=== PATIENT | male | born 1960 | race Caucasian/White ===

== ENCOUNTER 2018-10-20 06:41 | Inpatient (IN) | payer MEDICAID ==
[~2018-10-20] VITALS: Ht 170.2 cm; Wt 61.3 kg
[2018-10-20] VITALS (22 sets, daily range): BP systolic 110–145; BP diastolic 44–96; PULSE 61–91; RESP 14–21; Ht 170.2 cm; Wt 61.3 kg
[2018-10-20] MEDS ORDERED: SOD CHLORIDE 0.9% 1,000 ML IV STA ×2 (06:55→07:55)
[2018-10-20] MEDS ORDERED: ETOMIDATE 20 MG INJ IV ONE (07:00)
[2018-10-20] MEDS ORDERED: SUCCINYLCHOLINE CHLORIDE 100 MG/5 ML SYG IV ONE ×2 (07:00→21:00)
[2018-10-20] MEDS ORDERED: PROPOFOL 100 ML IV STA (07:11)
--- NOTE | 2018-10-20 07:11 | ERD ---
ER Documentation Chief Complaint Chief Complaint BIB RA39, AMS XTODAY, SUSPECTED OD HPI This is a 39-year-old male with an unknown past medical history that is brought into the emergency department by EMS from a bath house. When they arrived the patient was somnolent, and limited history was available. EMS did indicate that the patient stated he had taken GHB. However the patient was buried arousable and difficult to arouse. The patient had pinpoint pupils and they gave Narcan with no response. There is no signs of trauma. There is no signs of drug paraphernalia according to EMS. ROS All systems reviewed and are negative except as per history of present illness. Medications Home Meds Unable to Obtain Active Prescriptions or Reported Meds Allergies Allergies: Coded Allergies: Unknown: Unable to obtain (Unverified , 10/20/18) ADMITTED JENNIFER- UNABLE TO OBTAIN INFO AT THIS TIME (10/20 @ 08AM)-PLEASE UPDATE WHEN PT ABLE TO PROVIDE INFO PMhx/Soc Medical and Surgical Hx: Unable to obtain Smoking Status: Unknown if ever smoked Physical Exam Vitals Vital Signs Date Temp Pulse Resp B/P (MAP) Pulse Ox O2 O2 Flow FiO2 Time Delivery Rate 10/20/18 98.0 61 16 139/71 100 Mechanical 10:15 (93) Ventilator 10/20/18 66 18 126/83 100 Mechanical 09:45 (97) Ventilator 10/20/18 64 16 128/78 100 Mechanical 09:41 (95) Ventilator 10/20/18 74 16 133/97 100 Mechanical 09:15 (109) Ventilator 10/20/18 72 16 117/78 100 Mechanical 09:00 (91) Ventilator 10/20/18 72 16 113/77 100 Mechanical 08:45 (89) Ventilator 10/20/18 74 16 111/45 100 Mechanical 08:30 (67) Ventilator 10/20/18 78 18 113/62 100 Mechanical 08:15 (79) Ventilator 10/20/18 75 22 102/49 100 Mechanical 08:00 (66) Ventilator 10/20/18 82 24 107/33 100 Mechanical 07:40 (57) Ventilator 10/20/18 89 24 122/50 95 Mechanical 07:20 (74) Ventilator 10/20/18 58 20 100 60 07:00 10/20/18 97.9 56 14 124/83 95 06:52 (97) 5/16/19 69 24 159/83 99 Mechanical 06:49 (108) Ventilator Physical Exam Constitutional:Well-developed. Well-nourished. HEENT:Normocephalic. Atraumatic.Pupils were 2 mm equal round reactive to light. Dry mucous membranes.No tonsillar exudates. Neck: No nuchal rigidity. No lymphadenopathy. No posterior cervical spine tenderness or step-offs. Respiratory: Not using accessory muscles of respiration. Agonal respirations with decreased breath sounds bilaterally. Cardiovascular: Regular rate regular rhythm.No murmurs. No rubs were appreciated.S1, S2 normal. Distal pulses are palpable 2+ bilaterally. GI: Abdomen was soft. Nontender. Non Distended. No pulsatile abdominal masses or bruits. No rebound. No guarding. Bowel sounds were present and normal. Muscle skeletal: Full range of motion of both the upper and lower extremities bilaterally.Normal muscle tone.No assymetrical calf tenderness or swelling. Skin: Diaphoretic. No petechia, no purpura. No lesions on the palms or the soles of the feet. No maculopapular rash. NEURO: Patient did not open eyes in response to pain, did not withdraw to pain, a phasic with a GCS of 3. Result Diagram: 10/20/18 0707 10/20/18 0707 Results 24 hrs Laboratory Tests Test 10/20/18 07:07 10/20/18 09:54 White Blood Count 7.3 10^3/ul Red Blood Count 5.10 10^6/ul Hemoglobin 14.4 g/dl Hematocrit 44.3 % Mean Corpuscular Volume 86.9 fl Mean Corpuscular Hemoglobin 28.2 pg Mean Corpuscular Hemoglobin Concent 32.5 g/dl Red Cell Distribution Width 13.4 % Platelet Count 255 10^3/UL Mean Platelet Volume 10.5 fl Immature Granulocytes % 0.300 % Neutrophils % 52.5 % Lymphocytes % 37.2 % Monocytes % 8.1 % Eosinophils % 1.2 % Basophils % 0.7 % Nucleated Red Blood Cells % 0.0 /100WBC Immature Granulocytes # 0.020 10^3/ul Neutrophils # 3.9 10^3/ul Lymphocytes # 2.7 10^3/ul Monocytes # 0.6 10^3/ul Eosinophils # 0.1 10^3/ul Basophils # 0.1 10^3/ul Nucleated Red Blood Cells # 0.0 10^3/ul Prothrombin Time 12.5 Sec Prothrombin Time Ratio 1.0 INR International Normalized Ratio 0.92 Activated Partial Thromboplast Time 30.9 Sec Urine Color YELLOW Urine Clarity CLEAR Urine pH 5.0 Urine Specific [place] 1.015 Urine Ketones NEGATIVE mg/dL Urine Nitrite NEGATIVE mg/dL Urine Bilirubin NEGATIVE mg/dL Urine Urobilinogen NEGATIVE mg/dL Urine Leukocyte Esterase NEGATIVE [place]/ul Urine Hemoglobin NEGATIVE mg/dL Urine Glucose NEGATIVE mg/dL Urine Total Protein NEGATIVE mg/dl Sodium Level 145 mmol/L Potassium Level 4.1 mmol/L Chloride Level 110 mmol/L Carbon Dioxide Level 26 mmol/L Anion Gap 9 Blood Urea Nitrogen 22 mg/dl Creatinine 0.98 mg/dl Est Glomerular Filtrat Rate mL/min > 60 mL/min Glucose Level 125 mg/dl Calcium Level 9.3 mg/dl Total Bilirubin 0.5 mg/dl Direct Bilirubin 0.00 mg/dl Indirect Bilirubin 0.5 mg/dl Aspartate Amino Transf (AST/SGOT) 23 IU/L Alanine Aminotransferase (ALT/SGPT) 22 IU/L Alkaline Phosphatase 67 IU/L Creatine Kinase 65 IU/L Creatine Kinase Index 2.3 Creatinine Kinase MB (Mass) 1.51 ng/ml Troponin I < 0.012 ng/ml Total Protein 7.7 g/dl Albumin 4.2 g/dl Globulin 3.50 g/dl Albumin/Globulin Ratio 1.20 Salicylates Level < 1.0 mg/dl Urine Opiates Screen Negative Acetaminophen Level < 10.0 ug/ml Urine Barbiturates Negative Urine Amphetamines Screen POSITIVE Urine Benzodiazepines Screen Negative Urine Cocaine Screen Negative Urine Cannabinoids Negative Ethyl Alcohol Level < 10.0 mg/dl Blood Gas Specimen Source Blood arterial Arterial Blood Date Drawn 10/20/2018 10:05:31 AM Arterial Blood pH (Temp corrected) 7.348 Arterial Blood pCO2 (Temp correct) 44.1 mmhg Arterial Blood pO2 (Temp corrected) 247.5 mmHG Arterial Blood HCO3 23.7 mmol/L Arterial Blood Base Excess -2.0 mmol/L Arterial Blood Oxygen Saturation 99.0 mmHG Reynaldo Test N/A Arterial Blood Gas Puncture Site LB Arterial Blood Carboxyhemoglobin 0.2 % Arterial Blood Methemoglobin 0.3 % Blood Gas A-a O2 Differential 276.6 mmHg Oxyhemoglobin Percent 98.5 % Blood Gas Temperature 37.0 C Blood Gas Respiration Rate 18.0 Blood Gas Actual Respiration Rate 18 Blood Gas Modality VENT - AC FiO2 80.0 % Blood Gas Tidal Volume 500.0 mL Blood Gas Notified Whom TM Blood Gas Notified Time 10/20/2018 10:23:46 AM Current Medications Medications Dose Sig/Norma Start Time Status Last (Trade) Ordered Route PRN Stop Time Admin Dose Reason Admin Sodium 1,000 ml @ Q1H STAT 10/20/18 DC 10/20/18 Chloride 1,000 mls/hr IV 06:55 07:06 10/20/18 07:54 Etomidate 10 mg ONCE ONCE 10/20/18 DC 10/20/18 (Amidate) IV 07:00 07:07 10/20/18 07:02 100 mg ONCE ONCE 10/20/18 DC 10/20/18 Succinylcholi IV 07:00 07:08 ne Chloride 10/20/18 07:02 (Anectine Syringe) Propofol 100 ml @ ONCE STAT 10/20/18 10/20/18 1.95 mls/hr IV 07:11 07:36 10/22/18 10:27 Propofol 0 ml @ ud STK-MED 10/20/18 DC ONCE .ROUTE 07:13 10/20/18 07:14 Midazolam 4 mg ONCE STAT 10/20/18 DC 10/20/18 HCl IM 07:20 08:04 (Versed) 10/20/18 07:58 Propofol 100 mg ONCE ONCE 10/20/18 DC 10/20/18 (Diprivan) IV 08:00 08:05 10/20/18 08:01 Midazolam 10 mg ONCE ONCE 10/20/18 DC 10/20/18 HCl IV 08:00 08:07 (Versed) 10/20/18 08:01 Sodium 1,000 ml @ Q1H STAT 10/20/18 DC 10/20/18 Chloride 1,000 mls/hr IV 07:55 08:04 10/20/18 08:54 Propofol 60 mg ONCE ONCE 10/20/18 DC (Diprivan) IV 08:30 10/20/18 08:31 Lorazepam 2 mg ONCE ONCE 10/20/18 DC 10/20/18 (Ativan) IV 09:00 08:41 10/20/18 09:01 Midazolam 50 ml @ 3 ONCE STAT 10/20/18 10/20/18 HCl mls/hr IV 08:54 09:24 10/21/18 01:33 Procedures/MDM The patient presented to the emergency department with an acute and persistent change in their mental status. The differential diagnosis is diverse however reversible causes such as hypoglycemia, opiate overdose, thiamine deficiency were immediately considered. The patient was placed on a secured entrance monitor, continuous pulse oximetry and IV access was established. The patients airway was secure however hypoxic events such as anemia, shock, or severe pulmonary disease were all considered as etiologies in this patients presentation. Circulation assessed with good cap refill and did not require fluids or pressure support. Finger stick for rapid glucose determined to be normal. The patient had a GCS of 3. This was thought to be secondary to GHB. The patient was unable to maintain his airway. Therefore at this time the patient underwent rapid sequence intubation given 10 mg of etomidate followed by 100 mg of succinylcholine and intubated with a 7.50 endotracheal tube. This tube was seen going through the cords by myself and good capnometry change x6, equal and symmetrical breath sounds now heard bilaterally, with condensation seen within the tube to indicate good tube position. The tube was secured to the lip line of 24 cm. Chest radiograph reviewed by myself the radiologist indicated that the endotracheal tube is in good position. There is no infiltrates to suggest aspiration pneumonia. A Anders catheter was placed to measure urinary output and also to obtain a urine drug screen. The patient was positive for amphetamines. The patient was placed on a Versed drip. He also had received propofol as he did become agitated with attempting to remove the tube. However the patient was not following verbal command and I did not feel was safe to extubate at this time given that he likely had a combination of coingestion with GHB and amphetamines affecting his respiratory drive. He will be admitted to the intensive care unit in serious condition. 12 Lead EKG tracing ordered and reviewed by myself showed: Sinus bradycardia 56 bpm and no arrhythmia. PVCs GA interval normal. QRS duration normal. No ST segment elevation No ST segment depression. No changes consistent with acute ischemia. Critical Care: Time: 110 minutes Treatments/Evaluations: Close monitoring and treatment of unstable vital signs, cardiorespiratory, and neurologic status, while maintaining tight balance of fluid, respiratory, and cardiac interventions. Time does not include performing any of the above billable procedures. Departure Diagnosis: Primary Impression: Gamma-hydroxybutyrate (GHB) use disorder, severe Additional Impression: Respiratory distress Condition: Serious TERA HERNANDEZ MD October 20, 2018 07:11
[2018-10-20] MEDS ORDERED: PROPOFOL 0 ML ONE (07:13)
[2018-10-20] MEDS ORDERED: MIDAZOLAM 1 MG/ML 2 ML INJ IM STA (07:20)
[2018-10-20] MEDS ORDERED: PROPOFOL 200 MG INJ IV ONE ×2 (08:00→08:30)
[2018-10-20] MEDS ORDERED: MIDAZOLAM 1 MG/ML 2 ML INJ IV ONE (08:00)
[2018-10-20] MEDS ORDERED: MIDAZOLAM (DRIP) 50 mg/50 mL 50 ML IV STA (08:54)
[2018-10-20] MEDS ORDERED: LORAZEPAM 2 MG INJ IV ONE (09:00)
[2018-10-20] MEDS ORDERED: FENTAnyl (DRIP) 1000 mcg/100mL 100 ML IV SCH (12:30)
--- NOTE | 2018-10-20 14:29 | CONS ---
DATE OF ADMISSION: 10/20/2018 DATE OF CONSULTATION: 10/20/2018 REASON FOR CONSULT: Respiratory failure. Thank you, Dr. Sams, for this consultation. HISTORY OF PRESENT ILLNESS: This is a 39-year-old gentleman who was found down in a [facility] ent, brought to the Emergency Room for further evaluation. Here he had history of taking GHB. Unfor tunately, secondary to altered mental status patient was emergently intubated for airway protection. Currently, he remains agitated, moving all 4 limbs, but not following commands on mechanical ventila tion. PAST MEDICAL HISTORY: Unknown. MEDICATIONS PRIOR TO ADMISSION: Unknown. PHYSICAL EXAMINATION: GENERAL: Well-nourished, well-developed gentleman on mechanical ventilation, appears comfortable oth er than mild agitation. VITAL SIGNS: Temperature 98, pulse 76, blood pressure 126/80, O2 saturation 96%, FIO2 of 30%, orally intubated. NECK: Supple. No JVD or lymphadenopathy. CARDIAC: S1, S2, no added sounds or murmurs. CHEST: Diminished air entry bilaterally. ABDOMEN: Soft, nontender. No guarding or rebound. EXTREMITIES: No cyanosis, clubbing, edema. NEUROLOGIC: Grossly intact. No focal deficits. LABORATORY DATA: White count 7.3, hemoglobin 14.4, platelets of 255. BUN 22, creatinine 0.98. ABG: pH 7.34, pCO2 of 44, pO2 of 247. Urinalysis negative for infection, but positive for amphetamines. IMPRESSION AND PLAN: 1. Likely overdose of amphetamines, GHB, resulting in altered mental status requiring emergent intub ation for airway protection. Otherwise, incomplete data. We will continue with mechanical ventilati on. Continue with sedation and pain control. Anticipate extubation in the next 24 hours once agitat ion under control. 2. Obtain further history also. Dictated By: LYNDSEY BARRIOS MD SV/NTS Conf#: [id number] DID#: [id number] CC: MICHAEL SAMS MD;*EndCC*
[2018-10-20] MEDS: DOCUSATE SODIUM 100 MG CAP PO SCH (14:53)
[2018-10-20] MEDS ORDERED: ONDANSETRON 4 MG INJ IV PRN (15:00)
[2018-10-20] MEDS ORDERED: ACETAMINOPHEN 650MG/20.3ML CUP PO PRN (15:00)
[2018-10-20] MEDS ORDERED: LORAZEPAM 2 MG INJ IV PRN (15:00)
[2018-10-20] MEDS: DEXTROSE 5%-0.45% NACL 1,000 ML IV SCH ×2 (15:29→22:45)
[2018-10-20] MEDS: MIDAZOLAM (DRIP) 50 mg/50 mL 50 ML IV SCH ×2 (15:39→22:46)
[2018-10-20] MEDS ORDERED: ETOMIDATE 20 MG INJ ONE (21:00)
[2018-10-20] MEDS ORDERED: MIDAZOLAM 1 MG/ML 2 ML INJ ONE (21:00)
[2018-10-20] MEDS ORDERED: PROPOFOL 200 MG INJ ONE (21:00)
[2018-10-20] MEDS: FAMOTIDINE 20 MG INJ IV SCH (21:13)
--- NOTE | 2018-10-20 22:03 | HP ---
Date/Time of Note Date/Time of Note DATE: 10/20/18 Assessment/Plan VTE Prophylaxis SCD applied (from Nsg): Yes Pharmacological prophylaxis: NA/contraindicated Pharm contraindication: low risk/ambulating Lines/Catheters IV Catheter Type (from Nrsg): Peripheral IV Urinary Cath still in place: Yes Reason Cath still needed: other (indicate) Assessment/Plan Hospital Course 58-year-old male brought in from bath house with altered mentation managed as f ollows: 1. Acute toxic metabolic encephalopathy likely secondary to substance use 2. Accidental overdose 3. Acute respiratory failure secondary to the above 4. High risk for aspiration pneumonia/pneumonitis 5. Incomplete history 6. Highly probable multi-substance abuse Plan: -Continue ICU care, vent monitoring and sedation at this time -IV hydration -Consider CT scan of the brain -Neurology consultation -Pulmonary consultation -flour worker consult to reach family and positively identifying the patient -Further interventions per clinical course -Rule out acute coronary syndrome -Prophylaxis, SCDs for now, H2 blockers Result Diagram: 10/20/18 0707 10/20/18 0707 Results 24hrs Laboratory Tests Test 10/20/18 07:07 10/20/18 09:54 White Blood Count 7.3 Red Blood Count 5.10 Hemoglobin 14.4 Hematocrit 44.3 Mean Corpuscular Volume 86.9 Mean Corpuscular Hemoglobin 28.2 L Mean Corpuscular Hemoglobin Concent 32.5 Red Cell Distribution Width 13.4 Platelet Count 255 Mean Platelet Volume 10.5 H Immature Granulocytes % 0.300 Neutrophils % 52.5 Lymphocytes % 37.2 Monocytes % 8.1 Eosinophils % 1.2 Basophils % 0.7 Nucleated Red Blood Cells % 0.0 Immature Granulocytes # 0.020 Neutrophils # 3.9 Lymphocytes # 2.7 Monocytes # 0.6 Eosinophils # 0.1 Basophils # 0.1 Nucleated Red Blood Cells # 0.0 Prothrombin Time 12.5 Prothrombin Time Ratio 1.0 INR International Normalized Ratio 0.92 Activated Partial Thromboplast Time 30.9 Urine Color YELLOW Urine Clarity CLEAR Urine pH 5.0 Urine Specific [place] 1.015 Urine Ketones NEGATIVE Urine Nitrite NEGATIVE Urine Bilirubin NEGATIVE Urine Urobilinogen NEGATIVE Urine Leukocyte Esterase NEGATIVE Urine Hemoglobin NEGATIVE Urine Glucose NEGATIVE Urine Total Protein NEGATIVE Sodium Level 145 H Potassium Level 4.1 Chloride Level 110 Carbon Dioxide Level 26 Anion Gap 9 Blood Urea Nitrogen 22 H Creatinine 0.98 Est Glomerular Filtrat Rate mL/min > 60 Glucose Level 125 Hemoglobin A1c 5.5 Calcium Level 9.3 Total Bilirubin 0.5 Direct Bilirubin 0.00 Indirect Bilirubin 0.5 Aspartate Amino Transf (AST/SGOT) 23 Alanine Aminotransferase (ALT/SGPT) 22 Alkaline Phosphatase 67 Creatine Kinase 65 Creatine Kinase Index 2.3 Creatinine Kinase MB (Mass) 1.51 Troponin I < 0.012 Total Protein 7.7 Albumin 4.2 Globulin 3.50 H Albumin/Globulin Ratio 1.20 Salicylates Level < 1.0 L Urine Opiates Screen Negative Acetaminophen Level < 10.0 L Urine Barbiturates Negative Urine Amphetamines Screen POSITIVE Urine Benzodiazepines Screen Negative Urine Cocaine Screen Negative Urine Cannabinoids Negative Ethyl Alcohol Level < 10.0 H Blood Gas Specimen Source Blood arterial Arterial Blood Date Drawn 10/20/2018 10:05:31 AM Arterial Blood pH (Temp corrected) 7.348 L Arterial Blood pCO2 (Temp correct) 44.1 Arterial Blood pO2 (Temp corrected) 247.5 H Arterial Blood HCO3 23.7 Arterial Blood Base Excess -2.0 Arterial Blood Oxygen Saturation 99.0 H Reynaldo Test N/A Arterial Blood Gas Puncture Site LB Arterial Blood Carboxyhemoglobin 0.2 Arterial Blood Methemoglobin 0.3 Blood Gas A-a O2 Differential 276.6 H Oxyhemoglobin Percent 98.5 Blood Gas Temperature 37.0 Blood Gas Respiration Rate 18.0 Blood Gas Actual Respiration Rate 18 Blood Gas Modality VENT - AC FiO2 80.0 Blood Gas Tidal Volume 500.0 Blood Gas Notified Whom TM Blood Gas Notified Time 10/20/2018 10:23:46 AM HPI/ROS Admit Date/Time Admit Date/Time October 20, 2018 at 09:27 Hx of Present Illness 39-year-old male that was brought in by EMS due to altered mentation. Supposedly this patient was at the bath house and was noted to be unresponsive. When EMS got there, I was told that the patient was arousable to deep sternal rub I was able to tell them that he had taken some illicit substance, but patient's mentation slowly worsening. On arrival to the emergency room he had to be endotracheally intubated to protect his airway. He is currently being admitted to the intensive care unit and is on ventilator support. No further history is obtainable. However when he arrived to the intensive care unit, he was found to have multiple different substances that is thought to include crystal meth as well as some other drug paraphernalia that has been sent to the security office. No further medical history is obtainable at this time ROS Subjective hx not possible: pt critical status PMH/Family/Social Past Medical History Unknown Medications Current Medications Propofol 100 ml @ 1.95 mls/hr ONCE STAT IV Last administered on 10/20/18at 07:36; Admin Dose 1.95 MLS/HR; Start 10/20/18 at 07:11; Stop 10/22/18 at 10:27 Dexmedetomidine HCl 200 mcg/ Sodium Chloride 50 ml @ 0 mls/hr TITRATE IV ; Start 10/20/18 at 12:30 Fentanyl 100 ml @ 2.5 mls/hr TITRATE IV ; Start 10/20/18 at 12:30 Midazolam HCl 50 ml @ 1 mls/hr TITRATE IV Last administered on 10/20/18at 15:39; Admin Dose 8 MLS/HR; Start 10/20/18 at 14:40 Dextrose/Sodium Chloride 1,000 ml @ 125 mls/hr Q8H IV Last administered on 10/20/18at 15:29; Admin Dose 125 MLS/HR; Start 10/20/18 at 14:41 Ondansetron HCl (Zofran Inj) 4 mg Q6H PRN IV NAUSEA AND/OR VOMITING; Start 10/20/18 at 15:00 Acetaminophen (Tylenol Liquid) 650 mg Q6H PRN PO PAIN LEVEL 1-3 OR FEVER; Start 10/20/18 at 15:00 Lorazepam (Ativan) 1 mg Q2H PRN IV ANXIETY; Start 10/20/18 at 15:00 Docusate Sodium (Colace) 100 mg Q12H PO ; Start 10/20/18 at 15:00 Famotidine (Pepcid Iv) 20 mg Q12 IV Last administered on 10/20/18at 21:13; Admin Dose 20 MG; Start 10/20/18 at 21:00 Coded Allergies: Unknown: Unable to obtain (Unverified , 10/20/18) ADMITTED JENNIFER- UNABLE TO OBTAIN INFO AT THIS TIME (10/20 @ 08AM)-PLEASE UPDATE WHEN PT ABLE TO PROVIDE INFO Past Surgical History Unknown Family History Significant Family History: other (Unknown) Social History Smoking Status: Unknown if ever smoked Drug Use: other Exam/Review of Systems Vital Signs Vitals Vital Signs Date Temp Pulse Resp B/P (MAP) Pulse Ox O2 O2 Flow FiO2 Time Delivery Rate 10/20/18 72 18 117/72 99 Mechanical 21:00 (87) Ventilator 10/20/18 99.1 20:00 10/20/18 40 17:40 Exam Exam GENERAL: Intubated and comfortably sedated HEENT: DIANA, Intubated, Vent settings noted , LUNGS: diffusely diminished and clear BS HEART: S1, S2. No murmur, gallops or rubs. ABDOMEN: Soft, non distended, Normoactive bowel sounds. GENITOURINARY: Normal male external genitalia, Anders to bedside drainage EXTREMITIES: Patient is currently requiring bilateral upper extremity soft restraints. No lower extremity edema noted. Patient noted to move all 4 extremities NEUROLOGIC: The patient is currently sedated. SKIN: Otherwise, unremarkable. Additional Comments PROCEDURE: XR Chest. CLINICAL INDICATION: Altered Mental Status TECHNIQUE: PA and Lateral views of the chest were obtained. COMPARISON: None. FINDINGS: Endotracheal tube in place with tip proximal bailey. Hypoventilatory chest. Cardiomediastinal silhouette is normal. Pulmonary vasculature is normal. Lungs costophrenic angles are clear. Mild dextrorotoscoliosis thoracic spine. IMPRESSION: No evidence of acute cardiopulmonary disease. RPTAT:AAJJ Physician Gianni Time Electronically viewed and signed by Physician Gianni on 10/20/2018 07:42 BM/ CC: TERA HERNANDEZ MD [id number] I reviewed EKG Rate: 56 Rhythm: sinus Note: No ST elevation or depressions noted concerning for acute ischemic event. MICHAEL SAMS October 20, 2018 21:57
[2018-10-21] VITALS (42 sets, daily range): BP systolic 79–139; BP diastolic 57–83; PULSE 50–96; RESP 15–21
[2018-10-21] MEDS: DOCUSATE SODIUM 100 MG CAP PO SCH ×2 (02:44→15:00)
[2018-10-21] MEDS: DEXTROSE 5%-0.45% NACL 1,000 ML IV SCH ×4 (05:23→23:59)
[2018-10-21] MEDS: MIDAZOLAM (DRIP) 50 mg/50 mL 50 ML IV SCH (05:23)
[2018-10-21] MEDS: DEXMEDETOMIDINE HCL 200 MCG in SOD CHLORIDE 0.9% 48 ML IV SCH ×3 (08:17→18:33)
[2018-10-21] MEDS: FAMOTIDINE 20 MG INJ IV SCH ×2 (09:00→20:38)
--- NOTE | 2018-10-21 09:53 | PN ---
Date/Time of Note Date/Time of Note DATE: 10/21/18 TIME: 09:48 Assessment/Plan VTE Prophylaxis Risk score (from Ns)>0 risk: 2 SCD applied (from Ns): Yes Pharmacological prophylaxis: other Lines/Catheters IV Catheter Type (from [facility]): Peripheral IV Urinary Cath still in place: Yes Assessment/Plan Hospital Course 58-year-old male brought in from [facility] with altered mentation managed as follows: 1. Acute toxic metabolic encephalopathy likely secondary to substance use -Urine toxicology positive for amphetamines -Brain CT reviewed, no acute findings 2. Accidental overdose 3. Acute respiratory failure secondary to the above -Patient remains ventilator dependent 4. High risk for aspiration pneumonia/pneumonitis 5. Incomplete history 6. Highly probable multi-substance abuse Plan: -Continue ICU care, vent monitoring and sedation at this time -Critical care timevent management and weaning per pulmonary, appreciate input -IV hydration -Prophylaxis, SCDs for now, H2 blockers Approximately 30 minutes. Result Diagram: 10/21/18 0427 10/21/18 0428 Results 24hrs Laboratory Tests Test 10/20/18 09:54 10/20/18 22:25 10/21/18 04:27 10/21/18 04:28 Blood Gas Blood arterial Specimen Source Arterial Blood 10/20/2018 10:05: Date Drawn 31 AM Arterial Blood pH 7.348 L (Temp corrected) Arterial Blood 44.1 pCO2 (Temp correct) Arterial Blood 247.5 H pO2 (Temp corrected) Arterial Blood 23.7 HCO3 Arterial Blood -2.0 Base Excess Arterial Blood 99.0 H Oxygen Saturation Reynaldo Test N/A Arterial Blood LB Gas Puncture Site Arterial 0.2 Blood Carboxyhemo globin Arterial Blood 0.3 Methemoglobin Blood Gas A-a O2 276.6 H Differential Oxyhemoglobin 98.5 Percent Blood Gas 37.0 Temperature Blood Gas 18.0 Respiration Rate Blood Gas Actual 18 Respiration Rate Blood Gas VENT - AC Modality FiO2 80.0 Blood Gas Tidal 500.0 Volume Blood Gas TM Notified Whom Blood Gas 10/20/2018 10:23: Notified Time 46 AM Creatine Kinase 110 82 Creatine Kinase 1.9 1.5 Index Creatinine Kinase 2.09 1.27 MB (Mass) Troponin I 0.089 0.074 White Blood Count 10.5 # Red Blood Count 4.66 L Hemoglobin 13.1 L Hematocrit 40.3 L Mean Corpuscular 86.5 Volume Mean Corpuscular 28.1 L Hemoglobin Mean Corpuscular 32.5 Hemoglobin Concen t Red Cell 13.5 Distribution Width Platelet Count 206 Mean Platelet 10.9 H Volume Immature 0.300 Granulocytes % Neutrophils % 72.6 Lymphocytes % 18.3 Monocytes % 8.0 Eosinophils % 0.6 Basophils % 0.2 Nucleated Red 0.0 Blood Cells % Immature 0.030 Granulocytes # Neutrophils # 7.7 H Lymphocytes # 1.9 Monocytes # 0.8 Eosinophils # 0.1 Basophils # 0.0 Nucleated Red 0.0 Blood Cells # Sodium Level 140 Potassium Level 3.6 Chloride Level 108 Carbon Dioxide 26 Level Anion Gap 6 Blood Urea 7 # Nitrogen Creatinine 0.69 Est Glomerular > 60 Filtrat Rate mL/min Glucose Level 122 Calcium Level 8.2 L Phosphorus Level 3.6 Magnesium Level 1.8 Total Bilirubin 0.7 Direct Bilirubin 0.00 Indirect 0.7 Bilirubin Aspartate Amino 40 # Transf (AST/SGOT) Alanine 31 Aminotransferase (ALT/SGPT) Alkaline 58 Phosphatase Total Protein 6.3 # Albumin 3.2 #L Globulin 3.10 Albumin/Globulin 1.03 Ratio Exam/Review of Systems Exam Vitals Vital Signs Date Temp Pulse Resp B/P (MAP) Pulse Ox O2 O2 Flow FiO2 Time Delivery Rate 10/21/18 98.9 87 20 111/70 100 Mechanical 08:00 (84) Ventilator 10/21/18 40 08:00 Intake and Output 10/20/18 10/20/18 10/21/18 1515:00 23:00 07:00 IntakeIntake Total 18 ml 1189 ml 939 ml OutputOutput Total 2000 ml 875 ml 825 ml BalanceBalance -1982 ml 314 ml 114 ml Results Results 24hrs Laboratory Tests Test 10/20/18 09:54 10/20/18 22:25 10/21/18 04:27 10/21/18 04:28 Blood Gas Blood arterial Specimen Source Arterial Blood 10/20/2018 10:05: Date Drawn 31 AM Arterial Blood pH 7.348 L (Temp corrected) Arterial Blood 44.1 pCO2 (Temp correct) Arterial Blood 247.5 H pO2 (Temp corrected) Arterial Blood 23.7 HCO3 Arterial Blood -2.0 Base Excess Arterial Blood 99.0 H Oxygen Saturation Reynaldo Test N/A Arterial Blood LB Gas Puncture Site Arterial 0.2 Blood Carboxyhemo globin Arterial Blood 0.3 Methemoglobin Blood Gas A-a O2 276.6 H Differential Oxyhemoglobin 98.5 Percent Blood Gas 37.0 Temperature Blood Gas 18.0 Respiration Rate Blood Gas Actual 18 Respiration Rate Blood Gas VENT - AC Modality FiO2 80.0 Blood Gas Tidal 500.0 Volume Blood Gas TM Notified Whom Blood Gas 10/20/2018 10:23: Notified Time 46 AM Creatine Kinase 110 82 Creatine Kinase 1.9 1.5 Index Creatinine Kinase 2.09 1.27 MB (Mass) Troponin I 0.089 0.074 White Blood Count 10.5 # Red Blood Count 4.66 L Hemoglobin 13.1 L Hematocrit 40.3 L Mean Corpuscular 86.5 Volume Mean Corpuscular 28.1 L Hemoglobin Mean Corpuscular 32.5 Hemoglobin Concen t Red Cell 13.5 Distribution Width Platelet Count 206 Mean Platelet 10.9 H Volume Immature 0.300 Granulocytes % Neutrophils % 72.6 Lymphocytes % 18.3 Monocytes % 8.0 Eosinophils % 0.6 Basophils % 0.2 Nucleated Red 0.0 Blood Cells % Immature 0.030 Granulocytes # Neutrophils # 7.7 H Lymphocytes # 1.9 Monocytes # 0.8 Eosinophils # 0.1 Basophils # 0.0 Nucleated Red 0.0 Blood Cells # Sodium Level 140 Potassium Level 3.6 Chloride Level 108 Carbon Dioxide 26 Level Anion Gap 6 Blood Urea 7 # Nitrogen Creatinine 0.69 Est Glomerular > 60 Filtrat Rate mL/min Glucose Level 122 Calcium Level 8.2 L Phosphorus Level 3.6 Magnesium Level 1.8 Total Bilirubin 0.7 Direct Bilirubin 0.00 Indirect 0.7 Bilirubin Aspartate Amino 40 # Transf (AST/SGOT) Alanine 31 Aminotransferase (ALT/SGPT) Alkaline 58 Phosphatase Total Protein 6.3 # Albumin 3.2 #L Globulin 3.10 Albumin/Globulin 1.03 Ratio Imaging Imaging PROCEDURE: CT Brain without contrast. CLINICAL INDICATION: Altered mental status TECHNIQUE: A CT of the brain was performed on a multi-slice CT scanner utilizing axial imaging from the skull base through the vertex without IV contrast. Multiplanar reformatted images were made. Images were reviewed on a PACS workstation. The CTDIvol is 39.3 mGy and the DLP is 713.5 mGycm. One or more of the following dose reduction techniques were used: Automated exposure control. Adjustment of the mA and/or kV according to patient's size. Use of iterative reconstruction technique. DICOM images are available. COMPARISON: None FINDINGS: The sulcal gyral pattern is unremarkable without evidence of effacement. The sosa-white matter differentiation is intact. No masses, edema or shift is identified. There are no intraparenchymal or extraaxial fluid collections. The visualized paranasal sinuses and mastoid air cells are well-aerated. The skull base and calvarium are intact. IMPRESSION: No acute intracranial abnormalities are identified. RPTAT:AAJJ Stephane Becerra Physician Date Time Electronically viewed and signed by Stephane Becerra Physician on 10/21/2018 07:08 MC/ CC: MICHAEL SAMS [id number] Medications Medication Current Medications Propofol 100 ml @ 1.95 mls/hr ONCE STAT IV Last administered on 10/20/18at 07:36; Admin Dose 1.95 MLS/HR; Start 10/20/18 at 07:11; Stop 10/22/18 at 10:27 Dexmedetomidine HCl 200 mcg/ Sodium Chloride 50 ml @ 0 mls/hr TITRATE IV Last administered on 10/21/18at 08:17; Admin Dose 0.2 MLS/HR; Start 10/20/18 at 12:30 Fentanyl 100 ml @ 2.5 mls/hr TITRATE IV ; Start 10/20/18 at 12:30 Midazolam HCl 50 ml @ 1 mls/hr TITRATE IV Last administered on 10/21/18at 05:23; Admin Dose 10 MLS/HR; Start 10/20/18 at 14:40 Dextrose/Sodium Chloride 1,000 ml @ 125 mls/hr Q8H IV Last administered on 10/21/18at 05:23; Admin Dose 125 MLS/HR; Start 10/20/18 at 14:41 Ondansetron HCl (Zofran Inj) 4 mg Q6H PRN IV NAUSEA AND/OR VOMITING; Start 10/20/18 at 15:00 Acetaminophen (Tylenol Liquid) 650 mg Q6H PRN PO PAIN LEVEL 1-3 OR FEVER; Start 10/20/18 at 15:00 Lorazepam (Ativan) 1 mg Q2H PRN IV ANXIETY Last administered on 10/21/18at 05:14; Admin Dose 1 MG; Start 10/20/18 at 15:00 Docusate Sodium (Colace) 100 mg Q12H PO ; Start 10/20/18 at 15:00 Famotidine (Pepcid Iv) 20 mg Q12 IV Last administered on 10/20/18at 21:13; Admin Dose 20 MG; Start 10/20/18 at 21:00 MICHAEL SAMS October 21, 2018 09:53
--- NOTE | 2018-10-21 11:14 | CONS ---
Consult Date/Type/Reason Admit Date/Time October 20, 2018 at 09:27 Initial Consult Date Type of Consult Pulmonary Date/Time of Note DATE: 10/21/18 TIME: 11:13 Subjective Patient more alert this morning. Opens eyes follows commands. Objective Vital Signs Date Temp Pulse Resp B/P (MAP) Pulse Ox O2 O2 Flow FiO2 Time Delivery Rate 10/21/18 64 15 87/62 (70) 99 Mechanical 11:00 Ventilator 10/21/18 40 10:37 10/21/18 98.9 08:00 Intake and Output 10/20/18 10/20/18 10/21/18 1515:00 23:00 07:00 IntakeIntake Total 18 ml 1189 ml 939 ml OutputOutput Total 2000 ml 875 ml 825 ml BalanceBalance -1982 ml 314 ml 114 ml Exam PHYSICAL EXAMINATION: GENERAL: Well-nourished, well-developed gentleman on mechanical ventilation, appears comfortable other than mild agitation. VITAL SIGNS: NECK: Supple. No JVD or lymphadenopathy. CARDIAC: S1, S2, no added sounds or murmurs. CHEST: Diminished air entry bilaterally. ABDOMEN: Soft, nontender. No guarding or rebound. EXTREMITIES: No cyanosis, clubbing, edema. NEUROLOGIC: Grossly intact. No focal deficits. Vent Setting Ventilator Support Mode: CPAP, PS, SPONT Fraction of Inspired Oxygen pe: 40 Positive End Expiratory Pressu: 5.0 Results/Medications Result Diagram: 10/21/18 0427 10/21/18 0428 Results 24 hrs Laboratory Tests Test 10/20/18 22:25 10/21/18 04:27 10/21/18 04:28 Creatine Kinase 110 82 Creatine Kinase Index 1.9 1.5 Creatinine Kinase MB (Mass) 2.09 1.27 Troponin I 0.089 0.074 White Blood Count 10.5 # Red Blood Count 4.66 L Hemoglobin 13.1 L Hematocrit 40.3 L Mean Corpuscular Volume 86.5 Mean Corpuscular Hemoglobin 28.1 L Mean Corpuscular Hemoglobin Concent 32.5 Red Cell Distribution Width 13.5 Platelet Count 206 Mean Platelet Volume 10.9 H Immature Granulocytes % 0.300 Neutrophils % 72.6 Lymphocytes % 18.3 Monocytes % 8.0 Eosinophils % 0.6 Basophils % 0.2 Nucleated Red Blood Cells % 0.0 Immature Granulocytes # 0.030 Neutrophils # 7.7 H Lymphocytes # 1.9 Monocytes # 0.8 Eosinophils # 0.1 Basophils # 0.0 Nucleated Red Blood Cells # 0.0 Sodium Level 140 Potassium Level 3.6 Chloride Level 108 Carbon Dioxide Level 26 Anion Gap 6 Blood Urea Nitrogen 7 # Creatinine 0.69 Est Glomerular Filtrat Rate mL/min > 60 Glucose Level 122 Calcium Level 8.2 L Phosphorus Level 3.6 Magnesium Level 1.8 Total Bilirubin 0.7 Direct Bilirubin 0.00 Indirect Bilirubin 0.7 Aspartate Amino Transf (AST/SGOT) 40 # Alanine Aminotransferase (ALT/SGPT) 31 Alkaline Phosphatase 58 Total Protein 6.3 # Albumin 3.2 #L Globulin 3.10 Albumin/Globulin Ratio 1.03 Medications Current Medications Propofol 100 ml @ 1.95 mls/hr ONCE STAT IV Last administered on 10/20/18at 07:36; Admin Dose 1.95 MLS/HR; Start 10/20/18 at 07:11; Stop 10/22/18 at 10:27 Dexmedetomidine HCl 200 mcg/ Sodium Chloride 50 ml @ 0 mls/hr TITRATE IV Last administered on 10/21/18at 08:17; Admin Dose 0.2 MLS/HR; Start 10/20/18 at 12:30 Fentanyl 100 ml @ 2.5 mls/hr TITRATE IV ; Start 10/20/18 at 12:30 Midazolam HCl 50 ml @ 1 mls/hr TITRATE IV Last administered on 10/21/18at 05:23; Admin Dose 10 MLS/HR; Start 10/20/18 at 14:40 Dextrose/Sodium Chloride 1,000 ml @ 125 mls/hr Q8H IV Last administered on 10/21/18at 05:23; Admin Dose 125 MLS/HR; Start 10/20/18 at 14:41 Ondansetron HCl (Zofran Inj) 4 mg Q6H PRN IV NAUSEA AND/OR VOMITING; Start 10/20/18 at 15:00 Acetaminophen (Tylenol Liquid) 650 mg Q6H PRN PO PAIN LEVEL 1-3 OR FEVER; Start 10/20/18 at 15:00 Lorazepam (Ativan) 1 mg Q2H PRN IV ANXIETY Last administered on 10/21/18at 05:14; Admin Dose 1 MG; Start 10/20/18 at 15:00 Docusate Sodium (Colace) 100 mg Q12H PO ; Start 10/20/18 at 15:00 Famotidine (Pepcid Iv) 20 mg Q12 IV Last administered on 10/20/18at 21:13; Admin Dose 20 MG; Start 10/20/18 at 21:00 Assessment/Plan Hospital Course (Demo Recall) Assessment 1. Polysubstance abuse with subsequent respiratory failure 2. Incomplete data Plan 1. CPAP trial extubation 2. Social work evaluation to discuss substance abuse 3. Consider HIV testing given risk factors. Critical care time 40 minutes. LYNDSEY BARRIOS MD, [facility] October 21, 2018 11:14
[2018-10-21] MEDS ORDERED: SOD CHLORIDE 0.9% 500 ML IV ONE (12:00)
--- NOTE | 2018-10-21 12:34 | RADRPT ---
Echocardiogram Report Patient Name: Roni LEIGH ID: [id number] : 1960 (58y 2m)Study Date: 10/21/2018 7:51:00 AM Gender: Lebroncession #: [id number] Tech: [place] Location: [facility] Ref.Physician: MICHAEL SAMS Height(Cm): BSA: Weight(Kg): Quality: AdequateOrder Physician: MICHAEL SAMS Account #: Procedures: Echocardiographic Report: Transthoracic echocardiogram with complete 2D, M-Mode, and doppler examination. Indications: Resp failure. Measurements: 2D/M Mode Doppler Measurement Value Normal Range Measurement Value Normal Range LVIDd 2D 4.4 [ 4.2 - 5.8 ] cm AV Peak [place] 1.1 [ 100.0 - 170.0 ] cm/sec LVIDs 2D 2.9 [ 2.5 - 4.0 ] cm AV Peak PG 5.0 [ 2.0 - 9.0 ] mmHg LVPWd 2D 1.0 [ 0.6 - 1.0 ] cm LVOT Peak [place] 0.9 [ 70.0 - 110.0 ] cm/sec IVSd 2D 1.0 [ 0.6 - 1.0 ] cm LVOT Peak PG 3.0 [ 2.0 - 6.0 ] mmHg AoR Diam 2D 3.0 [ 2.6 - 3.4 ] cm MV E Peak [place] 0.5 [ 60.0 - 130.0 ] cm/sec EDV 2D 87.7 [ 62.0 - 150.0 ] ml MV A Peak [place] 0.7 [ 100.0 - 120.0 ] cm/sec ESV 2D 31.4 [ 21.0 - 61.0 ] ml MV E/A 0.8 [ 0.8 - 1.5 ] ratio EF 2D 64.2 [ 52.0 - 72.0 ] percent MV Decel Time 183 [ 104 - 258 ] msec LA Dimen 2D 2.7 [ 3.0 - 4.0 ] cm Lat E` Teofilo 0.1 [ 10.0 - 15.0 ] cm/sec Lateral E/E` 5.0 [ 1.0 - 2.0 ] ratio MV E/A 0.8 [ 0.8 - 1.5 ] ratio Findings: Left Ventricle: Normal left ventricular systolic function. Normal left ventricular cavity size. Normal left ventricular wall thickness. Ejection fraction is visually estimated at 60 %. Tissue Doppler/Mitral Doppler indices are within normal limits. Right Ventricle: Normal right ventricular size. Normal right ventricular systolic function. Left Atrium: The left atrium is normal in size. Right Atrium: The right atrium is normal in size. Mitral Valve: Normal appearance and function of the mitral valve with trace physiologic regurgitation. Aortic Valve: Normal appearance of the aortic valve. No significant aortic stenosis or insufficiency. Tricuspid Valve: Normal appearance of the tricuspid valve. Unable to obtain RVSP due to minimal presence of tricuspid regurgitation. Pulmonic Valve: Pulmonic valve not well visualized. Pericardium: Normal pericardium with no significant pericardial effusion. Aorta: Normal aortic root. IVC: Normal IVC with respiratory collapse, however patient on ventilator. Conclusions: Normal left ventricular systolic function. Normal left ventricular cavity size. Normal left ventricular wall thickness. Ejection fraction is visually estimated at 60 %. Tissue Doppler/Mitral Doppler indices are within normal limits. No significant valvular stenosis or regurgitation seen. Unable to obtain RVSP due to minimal presence of tricuspid regurgitation. Normal IVC with respiratory collapse. Electronically Signed By: Jordy Squires 2018-10-21 12:33:42 PDT
[2018-10-21] MEDS ORDERED: LIDOCAINE 1% (MPF) 5 ML VIAL SC ONE (13:00)
--- NOTE | 2018-10-21 14:30 | RADRPT ---
Vent Rate: 56 bpm RR Interval: 0 msec TN Interval: 114 msec QRS Duration: 88 msec QT Interval: 452 msec QTC Interval: 436 msec P-R-T [place]: 66 - 9 - 65 degrees Sinus bradycardia with occasional premature ventricular complexes Cannot rule out Inferior infarct , age undetermined Abnormal ECG Electronically Signed By: [facility]
[2018-10-21] MEDS ORDERED: NORepinephrine 8MG/250 ML (PMX 250 ML IV SCH (16:30)
[2018-10-21] MEDS ORDERED: NACL 3% FOR INHALATION 15 ML NEBU NEB ONE (21:00)
[2018-10-21] MEDS ORDERED: ACETAMINOPHEN 1000MG/100ML IV 100 ML IVPB PRN (22:00)
[2018-10-22] VITALS (24 sets, daily range): BP systolic 84–139; BP diastolic 53–71; PULSE 46–65; RESP 11–17
[2018-10-22] MEDS: DOCUSATE SODIUM 100 MG CAP PO SCH (02:21)
[2018-10-22] MEDS ORDERED: ACETAMINOPHEN 650MG/20.3ML CUP NGT PRN (03:00)
[2018-10-22] MEDS: FAMOTIDINE 20 MG INJ IV SCH (07:44)
--- NOTE | 2018-10-22 09:27 | CONS ---
Consult Date/Type/Reason Admit Date/Time October 20, 2018 at 09:27 Initial Consult Date Type of Consult Pulmonary Date/Time of Note DATE: 10/22/18 TIME: 09:26 Subjective Failed CPAP yesterday secondary to apneic episodes and hypotension. Currently more hemodynamically stable. Awake alert follows simple commands. Objective Vital Signs Date Temp Pulse Resp B/P (MAP) Pulse Ox O2 O2 Flow FiO2 Time Delivery Rate 10/22/18 35 07:41 10/22/18 55 16 96/59 (71) 98 Mechanical 06:00 Ventilator 10/22/18 99.8 04:00 Intake and Output 10/21/18 10/21/18 10/22/18 1414:59 22:59 06:59 IntakeIntake Total 1247.20 ml 809.06 ml 1068.12 ml OutputOutput Total 1200 ml 950 ml 805 ml BalanceBalance 47.20 ml -140.94 ml 263.12 ml Exam PHYSICAL EXAMINATION: GENERAL: Well-nourished, well-developed gentleman on mechanical ventilation, appears comfortable other than mild agitation. VITAL SIGNS: NECK: Supple. No JVD or lymphadenopathy. CARDIAC: S1, S2, no added sounds or murmurs. CHEST: Diminished air entry bilaterally. ABDOMEN: Soft, nontender. No guarding or rebound. EXTREMITIES: No cyanosis, clubbing, edema. NEUROLOGIC: Grossly intact. No focal deficits. Vent Setting Ventilator Support Mode: AC Fraction of Inspired Oxygen pe: 35 Positive End Expiratory Pressu: 5.0 Results/Medications Result Diagram: 10/22/18 0445 10/22/18 0445 Results 24 hrs Laboratory Tests Test 10/21/18 22:22 10/22/18 04:45 Urine Color YELLOW Urine Clarity CLEAR Urine pH 6.0 Urine Specific [place] 1.012 Urine Ketones NEGATIVE Urine Nitrite NEGATIVE Urine Bilirubin NEGATIVE Urine Urobilinogen 1+ H Urine Leukocyte Esterase NEGATIVE Urine Microscopic RBC 18 H Urine Microscopic WBC 1 Urine Mucus FEW A Urine Hemoglobin 2+ H Urine Glucose NEGATIVE Urine Total Protein NEGATIVE White Blood Count 9.8 Red Blood Count 4.03 L Hemoglobin 11.4 L Hematocrit 35.4 L Mean Corpuscular Volume 87.8 Mean Corpuscular Hemoglobin 28.3 L Mean Corpuscular Hemoglobin Concent 32.2 Red Cell Distribution Width 13.3 Platelet Count 171 Mean Platelet Volume 10.9 H Immature Granulocytes % 0.400 Neutrophils % 67.6 Lymphocytes % 20.8 Monocytes % 10.2 Eosinophils % 0.7 Basophils % 0.3 Nucleated Red Blood Cells % 0.0 Immature Granulocytes # 0.040 H Neutrophils # 6.6 Lymphocytes # 2.0 Monocytes # 1.0 H Eosinophils # 0.1 Basophils # 0.0 Nucleated Red Blood Cells # 0.0 Sodium Level 138 Potassium Level 3.7 Chloride Level 109 Carbon Dioxide Level 26 Anion Gap 3 L Blood Urea Nitrogen 8 Creatinine 0.69 Est Glomerular Filtrat Rate mL/min > 60 Glucose Level 119 Calcium Level 8.2 L Magnesium Level 2.0 Total Bilirubin 0.8 Direct Bilirubin 0.00 Indirect Bilirubin 0.8 Aspartate Amino Transf (AST/SGOT) 16 # Alanine Aminotransferase (ALT/SGPT) 19 Alkaline Phosphatase 47 Total Protein 5.3 #L Albumin 2.8 L Globulin 2.50 Albumin/Globulin Ratio 1.12 Medications Current Medications Propofol 100 ml @ 1.95 mls/hr ONCE STAT IV Last administered on 10/20/18at 07:36; Admin Dose 1.95 MLS/HR; Start 10/20/18 at 07:11; Stop 10/22/18 at 10:27 Dexmedetomidine HCl 200 mcg/ Sodium Chloride 50 ml @ 0 mls/hr TITRATE IV Last administered on 10/21/18at 18:33; Admin Dose 0.2 MLS/HR; Start 10/20/18 at 12:30 Fentanyl 100 ml @ 2.5 mls/hr TITRATE IV ; Start 10/20/18 at 12:30 Midazolam HCl 50 ml @ 1 mls/hr TITRATE IV Last administered on 10/21/18at 05:23; Admin Dose 10 MLS/HR; Start 10/20/18 at 14:40 Dextrose/Sodium Chloride 1,000 ml @ 125 mls/hr Q8H IV Last administered on 10/21/18at 23:59; Admin Dose 125 MLS/HR; Start 10/20/18 at 14:41 Ondansetron HCl (Zofran Inj) 4 mg Q6H PRN IV NAUSEA AND/OR VOMITING; Start 10/20/18 at 15:00 Lorazepam (Ativan) 1 mg Q2H PRN IV ANXIETY Last administered on 10/21/18at 05:14; Admin Dose 1 MG; Start 10/20/18 at 15:00 Docusate Sodium (Colace) 100 mg Q12H PO ; Start 10/20/18 at 15:00 Famotidine (Pepcid Iv) 20 mg Q12 IV Last administered on 10/22/18at 07:44; Admin Dose 20 MG; Start 10/20/18 at 21:00 Norepinephrine 250 ml @ 1.875 mls/ hr TITRATE IV ; Start 10/21/18 at 16:30 IV Flush (NS 10 ml) 10 ml PRN PRN IV IV PROTOCOL; Start 10/21/18 at 18:30 Acetaminophen (Tylenol Liquid) 650 mg Q6H PRN NGT PAIN LEVEL 1-3 OR FEVER; Start 10/22/18 at 03:00 Acetaminophen 100 ml @ 400 mls/hr Q6H PRN IVPB FEVER Last administered on 10/21/18at 23:57; Admin Dose 400 MLS/HR; Start 10/21/18 at 22:00; Stop 10/22/18 at 21:59 Assessment/Plan Hospital Course (Demo Recall) Assessment 1. Polysubstance abuse with subsequent respiratory failure 2. Incomplete data Plan 1. CPAP trial extubation 2. Social work evaluation to discuss substance abuse 3. HIV testing.. Critical care time 40 minutes. LYNDSEY BARRIOS MD, [facility] October 22, 2018 09:26
[2018-10-22] MEDS ORDERED: DOCUSATE SODIUM 100 MG CAP PO SCH (10:00)
[2018-10-22] MEDS: DEXTROSE 5%-0.45% NACL 1,000 ML IV SCH (13:23)
--- NOTE | 2018-10-22 13:58 | DS ---
Date/Time of Note Date/Time of Note DATE: 10/22/18 TIME: 13:57 Discharge Summary Admission/Discharge Info Admit Date/Time October 20, 2018 at 09:27 Discharge Date/Time Discharge Diagnosis Overdose Acute respiratory failure Patient Condition: Stable Hospital Course Patient intubated emergently in the ED for respiratory failure. He was maintained on mechanical ventilation as toxidrome resolved. He was extubated this morning and breathing comfortably with no complaitns. He requested to be discharged. We preferred he stay for monitoring post extubation but he was adamant about leaving. He understood the risks of early discharge including respiratory failure and and accepted these risks. Clearly had the capacity to do so. He signed AMA forms and left the hosptial. Home Meds Unable to Obtain Active Prescriptions or Reported Meds Primary Care Provider Care Physician No Primary Pending Labs Laboratory Tests Test 10/21/18 22:22 10/22/18 04:45 Urine Color YELLOW (YELLOW) Urine Clarity CLEAR (CLEAR) Urine pH 6.0 (5.0-9.0) Urine Specific [place] 1.012 (1.003-1.030) Urine Ketones NEGATIVE mg/dL (NEGATIVE) Urine Nitrite NEGATIVE mg/dL (NEGATIVE) Urine Bilirubin NEGATIVE mg/dL (NEGATIVE) Urine Urobilinogen 1+ mg/dL (NEGATIVE) Urine Leukocyte Esterase NEGATIVE [place]/ul Urine Microscopic RBC 18 /HPF (0-5) Urine Microscopic WBC 1 /HPF (0-5) Urine Mucus FEW /HPF (NONE SEEN) Urine Hemoglobin 2+ mg/dL (NEGATIVE) Urine Glucose NEGATIVE mg/dL (NEGATIVE) Urine Total Protein NEGATIVE mg/dl (NEGATIVE) White Blood Count 9.8 10^3/ul (4.8-10.8) Red Blood Count 4.03 10^6/ul (4.70-6.10) Hemoglobin 11.4 g/dl (14.0-18.0) Hematocrit 35.4 % (42.0-52.0) Mean Corpuscular Volume 87.8 fl (82.0-101.0) Mean Corpuscular 28.3 pg (29.0-33.0) Hemoglobin Mean Corpuscular 32.2 g/dl (32.0-37.0) Hemoglobin Concent Red Cell Distribution 13.3 % (11.5-14.5) Width Platelet Count 171 10^3/UL (140-415) Mean Platelet Volume 10.9 fl (7.4-10.4) Immature Granulocytes % 0.400 % (0.001-0.429) Neutrophils % 67.6 % (39.0-77.0) Lymphocytes % 20.8 % (15.0-51.0) Monocytes % 10.2 % (0.0-11.0) Eosinophils % 0.7 % (0.0-7.0) Basophils % 0.3 % (0.0-2.0) Nucleated Red Blood Cells 0.0 /100WBC (0.0-0.0) % Immature Granulocytes # 0.040 10^3/ul (0.0-0.031) Neutrophils # 6.6 10^3/ul (1.6-7.5) Lymphocytes # 2.0 10^3/ul (0.8-2.9) Monocytes # 1.0 10^3/ul (0.3-0.9) Eosinophils # 0.1 10^3/ul (0.0-0.5) Basophils # 0.0 10^3/ul (0.0-0.1) Nucleated Red Blood Cells 0.0 10^3/ul (0.0-0.0) # Sodium Level 138 mmol/L (135-144) Potassium Level 3.7 mmol/L (3.5-5.1) Chloride Level 109 mmol/L (97-110) Carbon Dioxide Level 26 mmol/L (21-31) Anion Gap 3 (5-13) Blood Urea Nitrogen 8 mg/dl (7-20) Creatinine 0.69 mg/dl (0.61-1.24) Est Glomerular Filtrat > 60 mL/min (>60) Rate mL/min Glucose Level 119 mg/dl (70-220) Calcium Level 8.2 mg/dl (8.4-10.2) Magnesium Level 2.0 mg/dl (1.7-2.5) Total Bilirubin 0.8 mg/dl (0.2-1.3) Direct Bilirubin 0.00 mg/dl (0.00-0.20) Indirect Bilirubin 0.8 mg/dl (0-1.1) Aspartate Amino 16 IU/L (15-46) Transf (AST/SGOT) Alanine 19 IU/L (13-69) Aminotransferase (ALT/SGPT ) Alkaline Phosphatase 47 IU/L (42-121) Total Protein 5.3 g/dl (6.1-8.1) Albumin 2.8 g/dl (3.3-4.9) Globulin 2.50 g/dl (1.3-3.2) Albumin/Globulin Ratio 1.12 Microbiology Date/Time Source Procedure Growth Status 10/21/18 22:22 Anders Catheter Urine Culture - Preliminary NO GROWTH Resulted AFTER 24 HOURS PATRICIA ZARATE MD October 22, 2018 13:58
== END 2018-10-22 13:40 | disposition left against medical advice (07) | DRG 917 ==
LOC: E/R 06:41 → ICU 09:27 → EDBD 09:27
PROVIDERS: ADMIT Family Medicine; ATTEND Internal Medicine
PROC: 0BH17EZ Insertion of Endotracheal Airway into Trachea, Via Natural or Artificial Opening (ICD-10-PCS; principal; 2018-10-20)
PROC: 5A1945Z Respiratory Ventilation, 24-96 Consecutive Hours (ICD-10-PCS; 2018-10-20)
DX: T41.291A Poisoning by other general anesthetics, accidental (unintentional), initial encounter (principal); G92 Toxic encephalopathy; J96.00 Acute respiratory failure, unspecified whether with hypoxia or hypercapnia; F19.10 Other psychoactive substance abuse, uncomplicated; Y92.89 Other specified places as the place of occurrence of the external cause
CPT/HCPCS: 31500; 36415; 36569; 36600; 70450; 71045; 76937; 80053; 80307; 81001; 81003; 82550; 82553; 82803; 83036; 83735; 84100; 84484; 85025; 85610; 85730; 86703; 87081; 87086; 89220; 93005; 93306; 94002; 94003; 94770; C1752; J0131; J2060; J2250; J7030; J7040; J7042